=== PATIENT | male | born 1990 | race Caucasian/White ===

== ENCOUNTER 2016-07-18 18:24 | Emergency (ER) | payer SELFPAY ==
[~2016-07-18] VITALS: Ht 167.6 cm; Wt 66.2 kg
[2016-07-18 21:55] VITALS: BP 134/74
== END 2016-07-18 21:55 | disposition home or self-care (01) ==
LOC: ED 18:24
DX: S61.412A Laceration without foreign body of left hand, initial encounter (principal); S61.217A Laceration without foreign body of left little finger without damage to nail, initial encounter; W25.XXXA Contact with sharp glass, initial encounter; Y93.9 Activity, unspecified; Y92.89 Other specified places as the place of occurrence of the external cause; Y99.8 Other external cause status
CPT/HCPCS: J1885; J2001; Q0092

== ENCOUNTER 2016-07-22 12:06 | Emergency (ER) | payer MEDICAID ==
[~2016-07-22] VITALS: Ht 167.6 cm; Wt 65.8 kg
[2016-07-22 12:16] VITALS: BP 155/94
== END 2016-07-22 13:37 | disposition home or self-care (01) ==
LOC: ED 12:06
DX: S61.215D Laceration without foreign body of left ring finger without damage to nail, subsequent encounter (principal); X58.XXXD Exposure to other specified factors, subsequent encounter; Y99.8 Other external cause status; Y92.89 Other specified places as the place of occurrence of the external cause